=== PATIENT | male | born 1970 | race African-American/Black ===

== ENCOUNTER 2021-06-08 08:23 | Emergency (ER) | payer OTHER ==
[2021-06-08] MEDS ORDERED: NAPROSYN500 MG PO (10:33)
== END 2021-06-08 10:40 | disposition home or self-care (01) ==
LOC: ER1 08:23
DX: S69.91XA Unspecified injury of right wrist, hand and finger(s), initial encounter (principal)
CPT/HCPCS: 73030; 73060; 73110; 96372; 99283; J1885